=== PATIENT | female | born 1935 | race Caucasian/White ===

== ENCOUNTER 2018-02-15 07:09 | Day surgery (SDC) | payer OTHER ==
[~2018-02-15] VITALS: Ht 160 cm; Wt 62.3 kg
[~2018-02-15 07:09] MED LIST: ABAT250V; ASPI81CH PO; BENZ100A PO; BETA1 PO; BP MED; Bystolic2.5 MG; GLIM2; GLIM2 PO; METF500 PO; METO25ER; Macrobid 100 M100 MG PO; Monodox100 MG PO; OXYACE5T PO; Ocuvite Softge1 EAC1 PO; Ventolin/Prove6.7 GM INH; WARF2.5 PO; WARF3; Zofran Odt4 MG SL; [UNRECOGNIZED DRUG - REMARK]
== END 2018-02-15 11:05 | disposition home or self-care (01) ==
LOC: ORSCSDS 07:09
PROVIDERS: Orthopaedic Surgery
PROC: 0RBX0ZZ Excision of Left Finger Phalangeal Joint, Open Approach (ICD-10-PCS; principal; 2018-02-15 08:45)
PROC: 01N50ZZ Release Median Nerve, Open Approach (ICD-10-PCS; principal; 2018-02-15 08:45)
DX: M67.442 Ganglion, left hand (principal); G56.02 Carpal tunnel syndrome, left upper limb; I10 Essential (primary) hypertension; E11.9 Type 2 diabetes mellitus without complications; Z79.82 Long term (current) use of aspirin; Z79.899 Other long term (current) drug therapy
CPT/HCPCS: 82947; 88304; J0171; J0690; J1885; J2405

== ENCOUNTER 2019-01-20 08:41 | Day surgery (SDC) | payer MEDICARE ==
[~2019-01-20] VITALS: Wt 57.0 kg
[~2019-01-20 08:41] MED LIST changes: -Bystolic2.5 MG; +Bystolic2.5 MG PO; +CALCIUM PLUS D; +LISI20 PO; +METF500C PO; -METO25ER; +METO25ER PO; +TEMA30 PO
--- NOTE | 2019-01-20 09:23 | NUR ---
PT ADMITTED TO [facility]. AGREES WITH PLANNED SURGER. LUNG SOUNDS CLEAR.
[2019-01-20] MEDS ORDERED: LOSA50 PO (09:59)
[2019-01-20] MEDS ORDERED: AMLO5 PO (09:59)
[2019-01-20] MEDS ORDERED: VITAMIN D3 (10:00)
--- NOTE | 2019-01-20 11:17 | NUR ---
ASSUMED CARE FROM IVANA FLOYD. HELPED PATIENT REPOSITION. SCRIPT GIVEN TO DAUGHTER TO SIZING END BANDER WHILE PT IS IN OR. PT IS ALERT AND ORIENTED.
--- NOTE | 2019-01-20 15:43 | NUR ---
Discharge instructions reviewed with patient. Patient verbalizes understanding. Copy given to patient to take home. Patient States Post-Procedure ride home has been arranged. Discharged via wheelchair to private car for ride home. PT DAUGHTER WAS WORRIED ABOUT GETTING PATIENT UP AND DOWN STAIRS AT [facility]. SPENT 1/2 HOUR DEMONSTRATING ONE AND TWO PERSON ASSISTANCE.
--- NOTE | 2019-01-20 15:45 | NUR ---
ALL BELONGINGS ACCOUNTED FOR AND RETURNED TO PATIENT. PT HAS A FAMILY MEMBER THAT IS A AGILE JAVA DEVELOPER THAT WILL BE AVAILABLE.
== END 2019-01-20 22:52 | disposition home or self-care (01) ==
LOC: ORSCMMR 08:41 → ORSCSDS 10:15 → ORSCMMR 22:52
PROVIDERS: Podiatrist Foot & Ankle Surgery
PROC: 0QSG04Z Reposition Right Tibia with Internal Fixation Device, Open Approach (ICD-10-PCS; principal; 2019-01-20 10:15)
PROC: 0QSJ04Z Reposition Right Fibula with Internal Fixation Device, Open Approach (ICD-10-PCS; principal; 2019-01-20 10:15)
DX: S82.851A Displaced trimalleolar fracture of right lower leg, initial encounter for closed fracture (principal); I10 Essential (primary) hypertension; I25.2 Old myocardial infarction; I25.10 Atherosclerotic heart disease of native coronary artery without angina pectoris; E11.9 Type 2 diabetes mellitus without complications; Z79.899 Other long term (current) drug therapy
CPT/HCPCS: 82947; C1713; C1769; J0690; J2250; J3010; J7120

== ENCOUNTER 2019-01-28 07:40 | Inpatient (IN) | payer MEDICARE, OTHER ==
[~2019-01-28] VITALS: Ht 172.7 cm; Wt 46.6 kg
[~2019-01-28 07:40] MED LIST changes: +AMLO5 PO; +LOSA50 PO; +VITAMIN D3
[2019-01-28 07:58] LABS: PCO2 Arterial 38.9 mmHg (35-45); PO2 Arterial 59.7 mmHg (80-100); pH Blood Arterial 7.41 (7.35-7.45)
[2019-01-28 08:02] LABS: Source, Urine Catheter
[2019-01-28 08:05] LABS: BASOPHILS ABSOLUTE AUTO 0.02 K/mm3 (0.00-0.23); BASOPHILS PERCENT AUTO 0 % (0-2); EOSINOPHILS ABSOLUTE AUTO 0.05 K/mm3 (0.00-0.68); EOSINOPHILS PERCENT AUTO 1 % (0-6); Hematocrit 34.2 % (33.0-51.0); Hemoglobin 11.2 g/dL (11.5-16.0); IMMATURE GRAN ABSOLUTE AUTO 0.01 K/mm3 (0.00-0.10); IMMATURE GRAN PERCENT AUTO 0 % (0-1); LYMPHOCYTES ABSOLUTE AUTO 0.66 K/mm3 (0.84-5.20); LYMPHOCYTES PERCENT AUTO 9 % (21-46); MONOCYTES ABSOLUTE AUTO 0.57 K/mm3 (0.16-1.47); MONOCYTES PERCENT AUTO 8 % (4-13); Mean Corpuscular HGB 27.3 pg (26.0-34.0); Mean Corpuscular HGB Conc 32.7 g/dL (31.5-36.5); Mean Corpuscular Volume 83 fL (80-100); Mean Platelet Volume 9.7 fL (9.1-12.4); NEUTROPHILS ABSOLUTE AUTO 5.76 K/mm3 (1.96-9.15); NEUTROPHILS PERCENT AUTO 82 % (41-73); Platelet Count 293 K/mm3 (150-400); RDW Coefficient Variation 13.2 % (11.7-14.2); RDW Standard Deviation 40.6 fL (35.1-46.3); White Blood Cell Count 7.07 K/mm3 (4.00-11.30)
[2019-01-28 08:06] LABS: Bilirubin, Urine Neg (Neg); Blood, Urine Neg (Neg); Glucose Qualitative, Urine 3+ (Neg); Ketones, Urine Neg (Neg); Leukocyte Esterase, Urine Neg (Neg); Nitrite, Urine Neg (Neg); Protein, Urine 1+ (Neg); Specific Gravity, Urine 1.015 (1.003-1.022); Urobilinogen, Urine NORM (Normal)
[2019-01-28] MEDS ORDERED: Acetaminophen325 M1 PO (08:07)
[2019-01-28] MEDS ORDERED: CLOP75 PO (08:08)
[2019-01-28 08:09] LABS: Appearance, Urine Clear (Clear); Color, Urine Yellow (P-Yellow)
[2019-01-28] MEDS ORDERED: GLYCERIN L5.4 GM/5.4 PR (08:09)
[2019-01-28] MEDS ORDERED: NITR.4SL SL (08:10)
[2019-01-28] MEDS ORDERED: Milk Of Ma400 MG/5 M PO (08:10)
[2019-01-28 08:39] LABS: Alanine Aminotransfer (ALT/SGP 11 U/L (12-78); Albumin, Blood 2.8 g/dL (3.4-5.0); Albumin/Globulin Ratio 0.8 (0.8-1.8); Alk Phos 62 U/L (50-136); Anion Gap 9 mmol/L (6-16); Aspartate Aminotrans (AST/SGOT 15 U/L (12-37); Bilirubin, Total 0.4 mg/dL (0.1-1.0); Blood Urea Nitrogen 10 mg/dL (8-24); Bun/Creatinine Ratio 22.5 (12.0-20.0); CO2, Blood 25 mmol/L (21-32); Calcium, Blood 7.9 mg/dL (8.5-10.1); Chloride, Blood 107 mmol/L (98-108); Creatinine, Blood 0.45 mg/dL (0.40-1.00); Globulin, Blood 3.3 g/dL (2.2-4.0); Glomerular Filtration Rate >60 (60-); Glucose, Blood 174 mg/dL (70-99); Potassium, Blood 2.9 mmol/L (3.5-5.5); Sodium, Blood 141 mmol/L (136-145); Total Protein, Blood 6.1 g/dL (6.4-8.2)
--- NOTE | 2019-01-28 10:22 | NUR ---
Clinical Visit: Pt is not responsive, per nurse. She will be admitted to ICU, displays discomfort with sternal rub. Nurse reports that he has not seen any family members. Reports that eDn has notified family, Dr. Gomes to call and speak to family. Will remain available, follow up with patient and family in ICU.
--- NOTE | 2019-01-28 10:37 | NUR ---
PATIENT ARRIVED ICU 14 APPROX 1015 AFTER REPORT FROM AKIRA. PATIENT IS UNRESPONSIVE, NO GAG, MOANS WHEN DEEP SX'D. NO RESPONSE TO OTHER PAINFUL STIMULI.
[2019-01-28] MEDS ORDERED: METO50 PO (11:24)
--- NOTE | 2019-01-28 11:57 | NUR ---
MD VISIT DR. VILLARREAL IN. DAUGHTER AND GRANDAUSHAWNTER AT BEDSIDE
--- NOTE | 2019-01-28 12:38 | NUR ---
COTTON JAMMER IN
--- NOTE | 2019-01-28 13:09 | NUR ---
WHEN GOING OVER PATIENT'S MEDS WITH FAMILY, DAUGHTER HAS MED LIST WITH GLIMEPIRIDE 2 MG WITH HALF TABLET TWICE A DAY[facility] WITH 1 TABLET TWICE A DAY OF 01/22/2019. DR. VILLARREAL NOTIFIED.
--- NOTE | 2019-01-28 15:18 | NUR ---
Large, loving family presence in room. Mrs. Stratton was non-responsive with aginal breaths. Family and pt are deeply gnosticist and appreciative of prayer. Contacted their foundry superintendant at family request and he will be making hospital visits. Family is awaiting test results to determine POC. They appear realistic of possible poor outcome. I will remain available.
--- NOTE | 2019-01-28 15:40 | NUR ---
DR. VILLARREAL STOPPED BY. HE REPORTS HE HAS ORDERED AN MRI PER NEUROLOGY RECOMMENDATION.
--- NOTE | 2019-01-28 17:47 | NUR ---
ICU DAYSHIFT SUMMARY PATIENT UNRESONSIVE TO STERNAL RUB - PROVIDER AWARE. VSS WITH [address] DEXTROSE GTT RUNNING PER EMAR. LUNG SOUND CLEAR TO DIM. Q2 TURNS AND SKIN/TOILETING ADDRESSED - DOMINGUEZ CATH IN PLACE WNL DRAINING YELLOW URINE. NO ACUTE CHANGES. WILL CONTINUE TO MONTIOR AND GIVE REPORT TO NOC SHIFT RN.
--- NOTE | 2019-01-28 19:15 | NUR ---
ASSUMED CARE ASSUMED CARE OF PATIENT. UNRESPONSIVE TO NOXIOUS STIMULI. NO SPONTANEOUS MOVEMENT OR WITHDRAWING OF EXTREMITES NOTED. OCCASIONAL MOANS. BATOOL, 3MM, SLUGGISH. SLOW NYSTAGMUS NOTED. MONITOR SHOWS NSR, RATE 70s. SBP 150s. TEMP 101.1F VIA DOMINGUEZ TEMP PROBE. O2 @ 2LNC. RESPIRATIONS EVEN AND UNLABORED. OCCASIONAL SNORING NOTED. NPO. DOMINGUEZ PATENT AND DRAINING CLEAR YELLOW URINE. D51/2NS WITH 20mEq KCL INFUSING @ 75CC/HR PER ORDER. CAST/SPLINT NOTED TO RLE. SEE SHIFT ASSESSMENT FOR FULL ASSESSMENT.
--- NOTE | 2019-01-29 00:50 | NUR ---
FEVER DR. ESQUIVEL NOTIFIED OF TEMP 100.9F. NEW ORDERS RECEIVED FOR BLOOD CULTURES X 2. WILL PASSIVELY COOL PT FOR NOW D/T ACETAMINOPHEN ALLERGY AND PATIENT'S INABILITY TO TAKE IBUPROFEN PO AT THIS TIME.
[2019-01-29 01:27] LABS: BASOPHILS ABSOLUTE AUTO 0.04 K/mm3 (0.00-0.23); BASOPHILS PERCENT AUTO 0 % (0-2); EOSINOPHILS PERCENT AUTO 0 % (0-6); Hematocrit 38.4 % (33.0-51.0); Hemoglobin 12.5 g/dL (11.5-16.0); IMMATURE GRAN ABSOLUTE AUTO 0.02 K/mm3 (0.00-0.10); IMMATURE GRAN PERCENT AUTO 0 % (0-1); LYMPHOCYTES ABSOLUTE AUTO 1.03 K/mm3 (0.84-5.20); LYMPHOCYTES PERCENT AUTO 8 % (21-46); MONOCYTES ABSOLUTE AUTO 1.12 K/mm3 (0.16-1.47); MONOCYTES PERCENT AUTO 9 % (4-13); Mean Corpuscular HGB 27.4 pg (26.0-34.0); Mean Corpuscular HGB Conc 32.6 g/dL (31.5-36.5); Mean Corpuscular Volume 84 fL (80-100); Mean Platelet Volume 9.7 fL (9.1-12.4); NEUTROPHILS ABSOLUTE AUTO 10.15 K/mm3 (1.96-9.15); NEUTROPHILS PERCENT AUTO 82 % (41-73); Platelet Count 318 K/mm3 (150-400); RDW Coefficient Variation 13.5 % (11.7-14.2); RDW Standard Deviation 41.7 fL (35.1-46.3); Red Blood Cell Count 4.56 M/mm3 (3.80-5.20); White Blood Cell Count 12.36 K/mm3 (4.00-11.30)
[2019-01-29 01:48] LABS: Anion Gap 9 mmol/L (6-16); Blood Urea Nitrogen 8 mg/dL (8-24); CO2, Blood 25 mmol/L (21-32); Calcium, Blood 8.3 mg/dL (8.5-10.1); Chloride, Blood 104 mmol/L (98-108); Glomerular Filtration Rate >60 (60-); Glucose, Blood 142 mg/dL (70-99); Potassium, Blood 3.4 mmol/L (3.5-5.5); Sodium, Blood 138 mmol/L (136-145)
--- NOTE | 2019-01-29 06:22 | NUR ---
SHIFT SUMMARY NO ACUTE CHANGES. CONTINUES TO MOAN OCCASIONALLY. OPENS EYES SLIGHTLY WITH REPOSITIONING. MINIMAL GROSS MOTOR MOVEMENT NOTED IN BILATERAL UPPER EXTREMITIES. BATOOL, 3MM, SLUGGISH. NO NYSTAGMUS NOTED THIS AM. RESPIRATIONS EVEN AND UNLABORED. OCCASIONAL SNORING NOTED. REMAINS ON RA AT THIS TIME. SBP 140-160s. HR 60-70s. TMAX 101.1F DURING SHIFT- 100.7 THIS AM. DOMINGUEZ PATENT AND DRAINING TO GRAVITY. PT IS NPO. D51/2NS WITH 20mEq KCL INFUSING AT 75CC/HR PER ORDER. WILL REPORT TO DAY SHIFT RN WHEN AVAILABLE.
--- NOTE | 2019-01-29 07:30 | NUR ---
ASSUMED CARE OF PATIENT; SEE ASSESSMENT CHARTING FOR DETAILS. PATIENT REMAINS NON-RESPONSIVE, EVEN TO PAINFUL STIMULI, AT THIS TIME. PUPILS ABOUT 3 AND REACIVE. NO NOTED GAG, SWALLOW, ETC. NO S/SX'S OF POSTURING. MONITOR NSR WITHOUT ECTOPY; SBP MODERATELY ELEVATED. LOW GRADE FEVER OF ABOUT 100.0 DEGREES (temp. mcdaniels probe). MCDANIELS DRAINING FAIR AMOUNT OF MED. KELLY URINE. LUNGS CLEAR; DIMINISHED IN BASES. NO ACUTE CHANGES AT THIS TIME.
--- NOTE | 2019-01-29 08:15 | NUR ---
DR. SILVA HERE; SEE ORDERS.
--- NOTE | 2019-01-29 10:45 | NUR ---
PATIENTS' FARM SUPERVISOR HERE TO VISITOR.
--- NOTE | 2019-01-29 13:00 | NUR ---
PATIENTS' SPOUSE, DAUGHTER AND GRAND -DAUGHTER HERE TO VISIT. VERY LOVING AND ATTENTIVE AND VERY RESPECTFUL OF ENVIRONMENT. DR. SILVA SPOKE TO PATIENTS' DAUGHTER EARLIER IN DAY RE: POC. DIFFICULT TO DETERMINE PROGNOSIS; REMAINS FULL CODE STATUS AT THIS TIME.
--- NOTE | 2019-01-29 13:30 | NUR ---
PATIENT MAKING MOANING NOISES AND OPENING MOUTH; APPEARS SHE IS REPOSITIONING ARMS ON OWN; NOT PER COMMAND. R EYE OPENED SPONTANEOUSLY BUT ONLY A SPLIT SECOND. 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 WILL CONTINUE TO MONITOR FOR CHANGES.
--- NOTE | 2019-01-29 17:30 | NUR ---
SUMMARY: REMAINS NPO STATUS D/T POOR RESPONSIVENESS. DOMINGUEZ OUTPUT 825 AND IVF INTAKE 849, THE PAST 12 HOURS. NEURO STATUS ABOUT THE SAME 1300 EVAL; CONT. WITH MOANING AND LIMBS/BODY FEEL LESS RIGID AND MORE RELAXED. TEMP. DOWN TO 99.8. WILL REPORT TO ONCOMING RN.
--- NOTE | 2019-01-29 20:55 | NUR ---
ASSUMED CARE OF PATIENT AT APPROXIMATELY 1905 FROM HAKEEM Macdonald RN. PATIENT DOESNT NOT OPEN EYES; PUPILS REACTIVE AND SLUGGISH; UNRESPONSIVE TO STIMULUS; MOANS IN BED AT TIMES; SNORING FOR MOST OF TIME; DOESNT FOLLOW COMMANDS; SOME MOVMENT IN RIGHT ARM AND LEFT LEG AT TIMES. NO S/S OF PAIN NOTED. CAST TO RIGHT LOWER EXTREMITY; MEPILEX PLACED TO LEFT BUTTOCK FOR PREVIOUS BLISTER HEALED; MEPILEX PLACE ON LEFT HEEL; WILL PUT MEPILEX ON COCCYX NEXT Q2H TURN. Q6 CBG. SB/NSR ON TELE; SPB 150'S AT TIMES. TEMPERATURE URINARY CATHETER IN PLACE DRAINING CLEAR YELLOW URINE. TEMP OF 100 TODAY. D51/[id number] KCL INFUSING 75ML/HR. PATIENT SLEEPING IN BED; CALL LIGHT IN REACH; BED IN LOWEST POSISTION; WILL CONTINUE TO MONITOR AND ASSESS UNTIL END OF SHIFT.
--- NOTE | 2019-01-30 01:34 | NUR ---
MEPILEX PLACED TO COCCYX; PATIENT'S EYES SLIGHLTY WHEN TURNING Q2H; DOES NOT TRACK OR FOLLOW COMMANDS; NO OTHER ACUTE CHANGES TO REPORT.
--- NOTE | 2019-01-30 06:30 | NUR ---
PATIENT SLEPT T/O SHIFT. SOME MOANING OUT AND SOME MOVEMENTS OF EXTREMITIES. TEMPERATURE MAX 100.7; NO OTHER ACUTE CHANGES TO REPORT. VSS. WILL CONTINUE TO MONITOR AND ASSESS UNTIL END OF SHIFT.
--- NOTE | 2019-01-30 07:30 | NUR ---
ASSUMED CARE OF PATIENT; SEE ASSESSMENT CHARTING FOR DETAILS. PATIENT REMAINS UNRESPONSIVE; EYES OPENED (? SPONT) AND APPEAR TO STAY OPENED; 2MM PUPILS; REACT VERY SLUGGISHLY. R ARM AND R SIDE OF HEAD TEND TO HAVE A TONIC/CLONIC TYPE MOVMENT THAT LASTS FOR SECONDS TO SEVERAL MINUTES; THEN IT WILL SUBSIDE. NO MOVMENT NOTED TO L ARM, ETC. PATIENT DOES NOT APPEAR TO RESPOND TO NOISE OR PAINFUL STIMULI. REMAINS FEBRILE; ROOM TEMP KEPT DOWN AND PATIENT WITH SHEET COVERING PART OF BODY. CAST REMAINS TO R CALF/FOOT; AILYN HOSE TO LE'S. MONITOR REMAINS SB TO NSR; SBP MODERATELY ELEVATED (150'S TO 160'S). IVF OF D51/2 NS [id number] KCL AT 75ML/HR.
--- NOTE | 2019-01-30 08:15 | NUR ---
DR. SILVA HERE; EVAL. PATIENT; PLANS TO CHANGE HER TO MEDICAL FLOOR STATUS WITHOUT TELEMETRY.
--- NOTE | 2019-01-30 18:29 | NUR ---
SUMMARY: NO NEW CHANGES; FAMILY VISITED THIS AFTERNOON. PATIENT REMAINS DNR/DNI STATUS. DR. SILVA CHANGED PATIENT TO MEDICAL FLOOR STATUS, THIS AM; NO ROOM AVAILABLE, YET, FOR TRANSFER. RN DISCUSSED WITH FAMILY THE NEED FOR THEM TO START DISCUSSING NUTRITION; ? NGT FEEDINGS/PEG TUBE ETC. PATIENT REMAINS ON IVF OF D51/2NS WITH 20MEQKCL AT 75ML/HR. BUT NOT RECEIVING ADEQUATE NUTRTION. FAMILY TO TALK THINGS OVER TONIGHT AND TRY TO DETERMINE THE BEST COURSE TO FOLLOW RE: NUTRITION. STILL FEEL HOPEFUL THAT PATIENT MAY IMPROVE BU ARE AWARE HER PROGNOSIS IS POOR FOR FULL RECOVERY, ETC. CBG READINGS REMAIN BETWEEN 150'S TO 180'S; NO INSULIN COVERAGE INDICATED. REMAINS FEBRILE; FAN PLACED IN ROOM TO HELP CIRCULATE AIR AND SHEET PULLED BACK.
--- NOTE | 2019-01-30 19:30 | NUR ---
[place] of Care: Patient unresponsive, opening eyes spontaneously but not tracking staff or following any commands. Slight withdrawal to painful stimuli and positive plantar reflex to left foot. Rt leg/foot in cast r/t ankle surgery. Rt pupil 2cm, lt pupil 3mc, both sluggish reaction to light. Periodic tonic/jerking movement of rt arm and rt leg. VSS, O2-96% on RA. Will continue to monitor for pain, safety, comfort.
--- NOTE | 2019-01-31 00:06 | NUR ---
Transfer of Care: Patient transferred to surgical floor ([phone] at 2330hr. Report call to Sarah FLOYD. Patient transferred to surgical bed via slide sheet without difficulty. Medications and belongings sent with patient.
--- NOTE | 2019-01-31 02:44 | NUR ---
NEURO ASSESSMENT 2820 NO CHANGES FROM PRIOR RN NOTE ON NEURO STATUS. PLANTAR REFLEX L FOOT. GROSS MOVEMENT AWAY FROM PAIN. JERKING/SPASMS NOTED LLE, LUE. VERY SLIGHT, SLUGGISH PUPIL RESPONSE BILAT; L PUPIL ONE MM LARGER THAN R PUPIL. DOES NOT FOLLOW COMMANDS. PASSIVE ROM LIMBS AND HANDS.
[2019-01-31 04:35] LABS: BASOPHILS ABSOLUTE AUTO 0.02 K/mm3 (0.00-0.23); BASOPHILS PERCENT AUTO 0 % (0-2); EOSINOPHILS PERCENT AUTO 0 % (0-6); Hematocrit 37.3 % (33.0-51.0); Hemoglobin 12.2 g/dL (11.5-16.0); IMMATURE GRAN ABSOLUTE AUTO 0.01 K/mm3 (0.00-0.10); IMMATURE GRAN PERCENT AUTO 0 % (0-1); LYMPHOCYTES ABSOLUTE AUTO 0.75 K/mm3 (0.84-5.20); LYMPHOCYTES PERCENT AUTO 14 % (21-46); MONOCYTES ABSOLUTE AUTO 0.76 K/mm3 (0.16-1.47); MONOCYTES PERCENT AUTO 14 % (4-13); Mean Corpuscular HGB 26.5 pg (26.0-34.0); Mean Corpuscular HGB Conc 32.7 g/dL (31.5-36.5); Mean Platelet Volume 9.8 fL (9.1-12.4); NEUTROPHILS ABSOLUTE AUTO 3.79 K/mm3 (1.96-9.15); NEUTROPHILS PERCENT AUTO 71 % (41-73); Platelet Count 266 K/mm3 (150-400); RDW Coefficient Variation 13.2 % (11.7-14.2); RDW Standard Deviation 38.5 fL (35.1-46.3); White Blood Cell Count 5.33 K/mm3 (4.00-11.30)
[2019-01-31 04:42] LABS: Mean Corpuscular Volume 81 fL (80-100)
[2019-01-31 05:04] LABS: Alanine Aminotransfer (ALT/SGP 12 U/L (12-78); Albumin, Blood 2.4 g/dL (3.4-5.0); Albumin/Globulin Ratio 0.7 (0.8-1.8); Alk Phos 62 U/L (50-136); Anion Gap 9 mmol/L (6-16); Aspartate Aminotrans (AST/SGOT 26 U/L (12-37); Bilirubin, Total 0.4 mg/dL (0.1-1.0); Blood Urea Nitrogen 10 mg/dL (8-24); Bun/Creatinine Ratio 28.7 (12.0-20.0); CO2, Blood 24 mmol/L (21-32); Chloride, Blood 99 mmol/L (98-108); Creatinine, Blood 0.35 mg/dL (0.40-1.00); Globulin, Blood 3.4 g/dL (2.2-4.0); Glomerular Filtration Rate >60 (60-); Glucose, Blood 178 mg/dL (70-99); Potassium, Blood 3.4 mmol/L (3.5-5.5); Sodium, Blood 132 mmol/L (136-145); Total Protein, Blood 5.8 g/dL (6.4-8.2)
--- NOTE | 2019-01-31 06:25 | NUR ---
SHIFT SUMMARY PT TRANSFERED FROM ICU JUST BEFORE MIDNIGHT. NO ACUTE CHANGES; NO NEURO CHANGES. VSS. PT REPOSITIONED T/O SHIFT. MEPILEX TO COCCYX AND OVER L BUTTOCK. KNEE HIGH AILYN HOSE TO LLE. DRESSING AND SPLINT TO RLE CDI. RLE ELEVATED T/O SHIFT. RA; EVEN, RELAXED WOB NOTED. TELEMETRY IN PLACE; PER DR. ESQUIVEL; SB PER LEGAL SERVICES MANAGER. SIDE RAILS X3 AND BED ALARM FOR SAFETY. PT NPO, ORAL CARE DOCUMENTED AND ORAL SWAB PRN. WCTM UNTIL REPORT TO DAY SHIFT RN.
--- NOTE | 2019-01-31 11:00 | NUR ---
Nursing requested to have PC be present when MD speaks with family. Update received from nursing. Nursing contacted Dr. Alston and he plans to come talk with pt's family. Family notified that Dr. Alston would like to speak with them. Family plans to be at hospital for a little while. PC will return to be present with family when Dr. Alston visits with them.
--- NOTE | 2019-01-31 18:46 | NUR ---
SHIFT SUMMARY PT BEEN RESTING QUIETLY T/O DAY. PT BEEN REPOSITIONED MULT TIMES WITH MULT PILLOWS. FAMILY WAS IN AND OUT OF ROOM AND HAS SPOKEN WITH COOKER SYRUP NURSE AND DR, PT IS NOW COMFORT CARE. ALARM IN PLACE. IVF BEEN STOPPED.
--- NOTE | 2019-02-01 04:20 | NUR ---
SHIFT SUMMARY NO ACUTE CHANGES. R PUPIL BIRSK RESPONSE TO LIGHT; L PUPIL VERY SLUGGISH RESPONSE TO LIGHT. OCC TREMOR/JERKING IN RUE AND LUE NOTED. RLE ELEVATED. PT REPOSITIONED AND OFFERED ORAL SPONGE/ORAL CARE T/O SHIFT. CALL LIGHT AT PT HAND. RA; EVEN WOB. NO S/SX OF PAIN OR NAUSEA. PT UNRESPONSIVE TO SOUND AND TOUCH. MEPILEX TO COCCYX. WILL CONTINUE TO MONITOR COMFORT UNTIL REPORT TO DAY SHIFT RN.
--- NOTE | 2019-02-01 09:11 | NUR ---
PT APPEARS TO BE RESTING COMFORTABLY. PT ASSISTED WITH REPOSITIONING. ORAL CARE ATTEMPTED BUT PT REACTIVELY BITES SWABS. WILL CONTINUE TO MONITOR.
--- NOTE | 2019-02-01 15:02 | NUR ---
PT APPEARS TO BE RESTING COMFORTABLY AT THIS TIME. PT ASSISTED WITH FREQUENT REPOSITIONING. WILL CONTINUE TO MONITOR.
--- NOTE | 2019-02-01 16:11 | NUR ---
PT IS RESTING QUIETLY AT THIS TIME. PALLIATIVE CARE RN HARPREET ROUNDED ON PT. WILL CONTINUE TO MONITOR.
--- NOTE | 2019-02-01 17:35 | NUR ---
TWITCHING MOVEMENTS PT HAS HAD SOME MILD TWITCHING MOVEMENTS TO HER RUE T/O THE DAY. PT HAD AN EPISODE OF MORE SEVERE TWITCHING TO HER RUE. DR. CARDONA WAS CONTACTED FOR ATIVAN ORDER.
--- NOTE | 2019-02-01 18:45 | NUR ---
SHIFT SUMMARY PT HAS REQUIRED ASSISTANCE WITH REPOSITIONING. PERSONAL CARE HAS BEEN DONE BY STAFF. PT REMAINS UNRESPONSIVE. SHE DOES HAVE EPISODES OF TWITCHING TO HER RUE AT TIMES; ATIVAN AVALIABLE IF THIS CONTINUES. WILL MONITOR UNTIL REPORT TO ONCOMING RN.
--- NOTE | 2019-02-01 19:36 | NUR ---
PT RESTING IN BED. EYES OPEN BUT DOES NOT TRACK MOVEMENT OR RESPOND TO REPOSITIONING. PT TWITCHING IN SHOULDERS PRIOR TO RESPOSITIONING. ARMS ARE STIFF AND PT RETURNS TO PREVIOUS ORIENTATION OF ARMS AFTER REPOSITIONING, LOWER LIMBS FLACID. PT IS WARM SO RECOVERED WITH JUST THE SHEET, NO BLANKET. EYES AND FACE CLEANED. ATTENDS DRY. WILL CTM.
--- NOTE | 2019-02-01 19:43 | NUR ---
review of patient with nursing. and suggested medications and risk for seizure. pt respirations even and unlabored, pulse strong no s/s of pain
--- NOTE | 2019-02-01 22:00 | NUR ---
PT APPEARS TO BE SLEEPING COMFORTABLY. SLIGHT TWITCHING WITH REPOSITIONING. ORAL CARE AND CATH CARE PERFORMED.
--- NOTE | 2019-02-01 23:48 | NUR ---
PT APPEARS COMFORTABLE AT THIS TIME. SLEEPING. NO RESPONSE WITH REPOSITIONING.
--- NOTE | 2019-02-02 02:10 | NUR ---
PT HAVING SEIZURE-LIKE ACTIVITY UPON ENTERING THE ROOM. JERKY MOVEMENTS OF UPPER EXTREMITIES AND PT IS GRUNTING, EYES OPEN BUT NOT TRACKING. AFTER ABOUT A MINUTE IN THE ROOM THE PT RELAXED, STOPPED JERKING AND GRUNTING. REPOSITIONED, ORAL CARE PERFORMED.
--- NOTE | 2019-02-02 04:49 | NUR ---
PT APPEARS TO BE RESTING COMFORTABLY AT THIS TIME. NO CHANGES TO CONDITION.
--- NOTE | 2019-02-02 05:46 | NUR ---
PT APPEARS COMFORTABLE AT THIS TIME. SHE IS NOT EXHIBITING THE JERKING MOVEMENTS OF NOW AND RESTING WITH EYES CLOSED.
--- NOTE | 2019-02-02 06:56 | NUR ---
SHIFT SUMMARY PT REMAINS ON FLOOR COMFORT CARE POST ENCEPHALOPATHY. DOMINGUEZ PATENT AND DRAINING. PT IS UNRESPONSIVE, 2 MAX ASSIST FOR TURNS. UNABLE TO CALL OR MAKE NEEDS KNOWN. PT HAD SEIZURE-LIKE ACTIVITY ONCE DURING THE NIGHT AND TWITCHING/JERKING MOVEMENTS FREQUENTLY OVERNIGHT. REPORT PASSED TO ONCOMING SHIFT.
--- NOTE | 2019-02-02 07:30 | NUR ---
ROUNDED ON PT AT 0700 AFTER RECIEVING REPORT. PT WAS MOANING AND HAVING JERKING MOVEMENTS OF HER UPPER BODY AT THAT TIME. JERKING MOVEMENTS HAD MOSTLY STOPPED BY THE TIME ATIVAN WAS GIVEN. PT RESTED COMFORTABLY WITH EYES CLOSED AFTER ATIVAN WAS ADMINISTERED. MOUTH MOISTERIZED WITH SWAB. PT COVERED WITH ONLY SHEET SHE IS WARM TO THE TOUCH. WILL CONTINUE TO MONITOR.
--- NOTE | 2019-02-02 08:26 | NUR ---
PT APPEARS TO BE RESTING COMFORTABLY AT THIS TIME. PT REPOSITIONED TO HER R SIDE. HEALS FLOATED. ORAL CARE COMPLETE.
--- NOTE | 2019-02-02 14:10 | NUR ---
ASSISTED PT TO REPOSITION. FAMILY AT THE BEDSIDE.
--- NOTE | 2019-02-02 19:09 | NUR ---
SHIFT SUMMARY PT HAS RESTED COMFORTABLY THIS SHIFT. ATIVAN GIVEN FOR SUSPECTED SEIZURES. PT REMAINS UNRESPONSIVE. FAMILY CAME TO VISIT X1. REPORT GIVEN TO SCOOBY FLOYD.
--- NOTE | 2019-02-02 20:12 | NUR ---
PT MEDICATED W/ ATIVAN AT THIS TIME FOR TWITCHING. ATTENDS CHANGED AND CATHETER BALLOON REINFLATED FOR LEAKAGE W/ CATH CARE, REPOSITIONED. PT RESTING WITH EYES CLOSED.
--- NOTE | 2019-02-02 22:11 | NUR ---
PT APPEARS COMFORTABLE AT THIS TIME. NO TWITCHING NOTED. REPOSITIONED, ORAL CARE PERFORMED. WILL CTM.
--- NOTE | 2019-02-03 01:31 | NUR ---
PT APPEARS TO BE RESTING COMFORTABLY. NO ACUTE CHANGES.
--- NOTE | 2019-02-03 03:17 | NUR ---
PT TWITCHING WITH REPOSITIONING, GIVEN ATIVAN FOR COMFORT. CATH CARE AND ORAL CARE PERFORMED.
--- NOTE | 2019-02-03 06:46 | NUR ---
PT RESTING COMFORTABLY AT THIS TIME. NO ACUTE CHANGES. BREATHING SHALLOW, UNLABORED.
--- NOTE | 2019-02-03 07:18 | NUR ---
BEDSIDE REPORT FROM DIRECTOR NEWS RN. PT RESTING COMFORTABLY.
--- NOTE | 2019-02-03 07:30 | NUR ---
PT MOUTH CLEANED WITH SWABS. FACE WASHED. REPOSITIONED. NO VERBAL RESPONSE.
--- NOTE | 2019-02-03 09:35 | NUR ---
PT MEDICATED WITH ATIVAN 0.5MG IV FOR SOME MOANING AND TWITCHING DURING CARE. CATH CARE COMPLETE. PT REPOSITIONED TOWARDS RIGHT SIDE. HAIR BRUSHED.
--- NOTE | 2019-02-03 11:15 | NUR ---
FAMILY AT BEDSIDE. DENIES NEEDS.
--- NOTE | 2019-02-03 14:15 | NUR ---
PT POSITIONED TO BACK. PT RESP EVEN, NON LABORED. NO VERBAL RESPONSE OR MEANINGFUL MOVEMENT.
--- NOTE | 2019-02-03 15:29 | NUR ---
VISITORS TO ROOM.
--- NOTE | 2019-02-03 16:00 | NUR ---
PT HAS NO VERBAL RESPONSE TO STIMULI. DOES NOT APPEAR TO BE IN PAIN. RES EVEN AND NON LABORED.
--- NOTE | 2019-02-03 17:55 | NUR ---
PT IN NADN. RESP REVEN AND NON LABORED. NO VERBAL RESPONSE TO STIMULI. CHAPSTICK APPLIED TO LIPS. PT REPOSITIONED TO RIGHT.
--- NOTE | 2019-02-04 00:50 | NUR ---
PT RESPIRATIONS ARE AT 24. APPEARS AGITATED WHEN REPOSITIONED AND GIVEN ORAL CARE. WILL GIVE 0.5MG ATIVAN PER EMAR.
--- NOTE | 2019-02-04 10:38 | NUR ---
Comfort Care Assessment: Pt is laying in bed. Respirations at 22, appears comfortable. Family just arrived, they have no questions about symptoms. They did bring her body donation to science arrangements. This was discussed with nurse, Natalie, and then placed in the chart. No other concerns at this time. Natalie will assess and administer roxanol as appropriate for dyspnea. Will remain available to help in any way possible.
--- NOTE | 2019-02-04 12:22 | NUR ---
CARE COMPLETED ORAL CARE COMPLETED; PT RESTING COMFORTABLE AND RESP EVEN UNLABORED.
--- NOTE | 2019-02-04 19:30 | NUR ---
SHIFT SUMMARY PT APPEARS TO BE RESTING COMFORTABLY T/O SHIFT. MINIMAL ARM TWITCHING THAT LASTS APPROX 5 MINS AFTER REPOSITIONING THEN STOPS. ORAL CARE ROUTINELY.
--- NOTE | 2019-02-05 04:24 | NUR ---
SHIFT SUIMMARY: PT APPEARS TO BE RESTING COMFORTABLY T/O SHIFT. REPOSITIONED AND GIVEN ORAL CARE Q2H. CATH CATH ROUTINELY.
--- NOTE | 2019-02-05 07:15 | NUR ---
REPORT FROM ANNEMARIE FLOYD. ASSUMED PT CARE.
--- NOTE | 2019-02-05 07:30 | NUR ---
RESP EVEN AND NONLABORED, 350ML KELLY URINE EMPTIED FROM DOMINGUEZ. 18G IV NOTED TO LEFT FA. NO SWELLING APPRECIATED. PT WITH NO VERBAL RESPONSE, DOES NOT OPEN EYES THIS MONRING. SKIN WNL. AL TURNED TO LEFT SIDE, PILLOWS PLACED UNDER HIP AND BACK.
--- NOTE | 2019-02-05 13:46 | NUR ---
PT MEDICATED WITH 0.5MG ATIVAN IV FOR SOME VISIBLE MUSCLE SPASMS. PT TURNED TO RIGHT SIDE. POWDER APPLIED. LOTION APPLIED.
--- NOTE | 2019-02-05 13:48 | NUR ---
FAN PLACED AT BEDSIDE ON LOW SETTING.
--- NOTE | 2019-02-05 14:49 | NUR ---
Mrs. Stratton was alone in room. She appears peaceful and is not responsive. Breaths shallow, but even. I provided prayer at bedside for a peaceful transition. I will remain available to pt and family.
--- NOTE | 2019-02-05 15:35 | NUR ---
PT RESP EVEN AND NON-LABORED. NO VISIBLE MUSCLE TWITCHING NOTED. PT NOW LYING ON BACK. FAN IN PLACE TO CIRCULATE AIR. NO FAMILY NOTED.
--- NOTE | 2019-02-05 17:56 | NUR ---
PT TURNED BY PROGRAM COORDINATOR FOR [employer]. RESP CONT TO BE EVEN AND NON LABORED. SKIN NOT WARM TO TOUCH. NO VISIBLE MUSCLE SPASMS.
--- NOTE | 2019-02-05 22:10 | NUR ---
PT APPEARS TO BE SLEEPING IN BED, NO S/SX DISTRESS NOTED. PT REPOSITIONED, SOPHIE WELL, ORAL CARE COMPLETED. PT UNRESPONSIVE DURING CARE. BED ALARM ON, WILL CONT TO MONITOR AND TX PRN
--- NOTE | 2019-02-06 05:53 | NUR ---
PT REMAINED UNRESPONSIVE DURING NIGHT. NO SEIZURE ACTIVITY OR S/SX PAIN/DISTRESS NOTED. PT REPOSITIONED Q2 T/O NIGHT, SOPHIE WELL. ORAL CARE PROVIDED; PT WILL BITE DOWN ON SPONGE WHEN ATTEMPTING CARE, DOES NOT APPEAR TO RESPOND TO VERBAL COMMUNICATION OR ANY OTHER PHYSICAL STIMULI. SIDE RAILS UP, CALL LIGHT IN REACH, BED ALARM ON. WILL CONT TO MONITOR UNTIL REP GIVEN TO ONCOMING RN.
--- NOTE | 2019-02-06 07:00 | NUR ---
REPORT FROM DARCIE Day RN. ASSUMED PT CARE.
--- NOTE | 2019-02-06 07:30 | NUR ---
PT TURNED TO LEFT SIDE. HAIR BRUSHED, FACE WASHED, LOTION TO ARMS. SPOT CHECK VS AND BLOOD SUGAR. NO FAMILY PRESENT. RESP EVEN AND NON LABORED. PT DOES NOT WAKE OR HAVE SPONTANEOUS MOVEMENT.
--- NOTE | 2019-02-06 09:22 | NUR ---
PT TURNED TO RIGHT. PLAN TO MOVE PT TO MEDICAL FLOOR FOR FURTHER CARE. ROOM ASSIGNMENT RECEIVED.
--- NOTE | 2019-02-06 09:25 | NUR ---
ADARSH FLOYD AWARE OF PT TX. WILL CALL FOR REPORT.
--- NOTE | 2019-02-06 09:38 | NUR ---
REPORT TO ADARSH FLOYD. PT TO TX TO 328
--- NOTE | 2019-02-06 13:19 | NUR ---
1015 PT TRANSFERED FROM SURGICAL TO MEDICAL FLOOR, BEDS EXCHANGED FOR PT'S COMFORT, NO S/SX OF DISTRESS OR DISCOMFORT OBSERVED. FAMILY AT BEDSIDE.
--- NOTE | 2019-02-06 14:52 | NUR ---
PT WITH RR 28, OCCASSIONAL WINCING AND SLIGHT MOANS. PRN ROXONOL GIVEN.
--- NOTE | 2019-02-06 16:43 | NUR ---
PT SWEATING, FAN APPLIED TO LOW SETTING.
--- NOTE | 2019-02-06 18:02 | NUR ---
DYSPNEA AND DIAPHORESIS IMPROVED. NO S/SX OF DISTRESS OR DISCOMFORT NOTED AT THIS TIME.
--- NOTE | 2019-02-07 01:08 | NUR ---
Pt comatose/ non responsive. No family present. pt turned and cares completed. No s/s pain noted.
--- NOTE | 2019-02-07 03:28 | NUR ---
Shift summary:Pt has been unresponsive most of shift with no respiratory distress noted. . Around 330 her breathing became more labored- roxinol 10mg given orally which seemed to help. Pulse remains strong and no mottling of skin noted. Pt turned every 2-3 hours.
--- NOTE | 2019-02-07 09:05 | NUR ---
PATIENT RESTING. NO DISTRESS NOTED. FAMILY NOT AT BEDSIDE.
--- NOTE | 2019-02-07 10:50 | NUR ---
BEDBATH, LINEN CHANGE, AND ORAL CARE.
--- NOTE | 2019-02-07 14:41 | NUR ---
Pt visit this afternoon. Pt resting in bed and appears comfortable. Pt is non responsive. Offered therapeutic touch on arm and shoulder and gentle voice with no response. Spoke with Pt's nurse and she reports no concerns at this time. Will remain available for symptom management.
--- NOTE | 2019-02-07 15:38 | NUR ---
PATIENT RESTING, NO DISTRESS NOTED.
--- NOTE | 2019-02-07 15:39 | NUR ---
PATIENT REPOSITIONED. NO DISTRESS NOTED.
--- NOTE | 2019-02-07 23:40 | NUR ---
rOXINAL 5 MG GIVEN FOR AIR HUNGER WITH ADEQUATE RELIEF.
--- NOTE | 2019-02-08 03:12 | NUR ---
Shift summary: pt given 10 mg of roxinal x 2 during shift for air hunger which seems to help some. Pt repositioned x 3 during the night. Skin warm. heart rate regular and strong. Rapid respirations. No skin mottling noted.
--- NOTE | 2019-02-08 05:09 | NUR ---
Air hunger: Pt air hunger increasing . resp rate between 30-40. Pt given ativan which didnt seem to slow breathing down. Pt given another dose of roxinol 20 mg which has slowed her breathing down.
--- NOTE | 2019-02-08 07:37 | NUR ---
comfort care pt nonresponsive. pt appears to be resting comfortably. resp at 34, no apnic episodes noted. ls dim in bases. heart sounds irregularly irregular. bs x4 quad hypoactive. mcdaniels in patent and draining. repositioned. rle in splint/cast and elevated. will continue to monitor and medicate for comfort.
--- NOTE | 2019-02-08 10:54 | NUR ---
THIS RN TO ROOM AT 1045 TO REASSESS AIR HUNGER. NO RESPIRATIONS, NO PULSE AND NO LS OR HEART BEAT NOTED ON AUSCULTATION. LEFT MESSAGE FOR DOCTOR ELENITA. NOTIFIED NURSING [employer] BENNETT. BENNETT TO NOTIFIED DAUGHTER/FAMILY.
--- NOTE | 2019-02-08 11:31 | NUR ---
IV AND DOMINGUEZ REMOVED. PT REPOSITIONED FLAT.
--- NOTE | 2019-02-08 13:11 | NUR ---
Pt picked up by Sina Law with [facility] at 1256.
== END 2019-02-08 10:45 | DRG 637 ==
LOC: ER 07:40 → SURS 09:34 → ICUW 09:34 → SURS 01-30 23:30 → MEDS 02-06 10:15
PROVIDERS: Emergency Medicine; Internal Medicine; ADMIT Hospitalist
DX: E11.649 Type 2 diabetes mellitus with hypoglycemia without coma (principal); G93.41 Metabolic encephalopathy; J69.0 Pneumonitis due to inhalation of food and vomit; Z51.5 Encounter for palliative care; E11.51 Type 2 diabetes mellitus with diabetic peripheral angiopathy without gangrene; I10 Essential (primary) hypertension; I25.10 Atherosclerotic heart disease of native coronary artery without angina pectoris; Z79.4 Long term (current) use of insulin; K58.9 Irritable bowel syndrome, unspecified; Z95.5 Presence of coronary angioplasty implant and graft; Z86.718 Personal history of other venous thrombosis and embolism; R40.20 Unspecified coma; I63.541 Cerebral infarction due to unspecified occlusion or stenosis of right cerebellar artery; S82.891S Other fracture of right lower leg, sequela; E11.59 Type 2 diabetes mellitus with other circulatory complications
CPT/HCPCS: 36415; 36600; 51702; 70450; 71045; 80048; 80053; 82803; 82947; 85025; 87040; 93005; 93010; 94760; 94762; 96365-59; 96375-59; 99285-25; J0696; J1650; J2060; J2310; J3480